=== PATIENT | female | born 1965 | race American Indian/Alaskan Native ===

== ENCOUNTER 2016-06-08 08:05 | Outpatient (CLI) | payer OTHER ==
--- NOTE | 2016-06-08 13:49 | Mammography Report ---
BILATERAL DIGITAL SCREENING MAMMOGRAM with CAD: 06/08/16 08:05:00 CLINICAL: Routine screening. COMPARISON:12/31/14 FINDINGS: The breasts are heterogeneously dense, which may obscure small masses. No mass, architectural distortion or suspicious calcifications. IMPRESSION: No mammographic evidence of malignancy. BI-RADS CATEGORY: 1 - - Negative RECOMMENDATION: Routine mammographic screening in one year. COMMENT: Patient follow-up letters are generated by our [employer] application.
== END 2016-06-08 08:06 | disposition home or self-care (01) ==
LOC: SPVWC 08:05
PROVIDERS: ATTEND Internal Medicine
DX: Z12.31 Encounter for screening mammogram for malignant neoplasm of breast (principal)
CPT/HCPCS: 77067; G0202

== ENCOUNTER 2017-06-21 08:01 | Outpatient (CLI) | payer OTHER ==
--- NOTE | 2017-06-21 11:34 | Mammography Report ---
Screening mammogram: Routine imaging is compared to prior exams dating back to 2015. There is an intermediate density fibroglandular patterns diffusely distributed bilaterally. This pattern is generally unchanged from prior exams. In the superior right breast seen only in the MLO projection however there is a 4.5 mm circumscribed density on the current study not previously visualized. The findings are otherwise remarkable. CAD used. Impression: Right breast asymmetry. Recommendation: Additional compression imaging of the right breast and ultrasound as needed. BI-RADS CATEGORY: 0 = Needs additional imaging evaluation ACR BI-RADS MAMMOGRAPHIC CODES: 0 = Needs additional imaging evaluation; 1 = Negative; 2 = Benign; 3 = Probably benign; 4 = Suspicious; 5 = Malignant; 6 = Known biopsy-proven malignancy COMMENT: 1. Dense breast tissue, i.e., adenosis, fibrocystic changes, etc., may obscure an underlying neoplasm. 2. Approximately 10% of cancers are not detected with mammography. 3. A negative mammography report should not delay biopsy if a clinically suspicious mass is present.
== END 2017-06-21 08:02 | disposition home or self-care (01) ==
LOC: SPVWC 08:01
PROVIDERS: ATTEND Internal Medicine
DX: Z12.31 Encounter for screening mammogram for malignant neoplasm of breast (principal)
CPT/HCPCS: 77067

== ENCOUNTER 2017-07-05 09:41 | Outpatient (CLI) | payer OTHER ==
--- NOTE | 2017-07-05 10:44 | Mammography Report ---
Right mammogram and right breast ultrasound: Call back patient for right asymmetry. Spot MLO compression imaging includes the area previously demonstrating a nodular area of density. The current exam however does not clearly demonstrate the previously suspected nodule. Ultrasound in the superior breast and specifically in the lateral portion fails to identify any echogenic abnormality. The only finding is a benign appearing axillary lymph node. Impression: No suspicious findings. Recommendation: Repeat right mammogram in 6 months to confirm stability. The findings and recommendations have been discussed with the patient. BI-RADS CATEGORY: 3 = Probably benign ACR BI-RADS MAMMOGRAPHIC CODES: 0 = Needs additional imaging evaluation; 1 = Negative; 2 = Benign; 3 = Probably benign; 4 = Suspicious; 5 = Malignant; 6 = Known biopsy-proven malignancy COMMENT: 1. Dense breast tissue, i.e., adenosis, fibrocystic changes, etc., may obscure an underlying neoplasm. 2. Approximately 10% of cancers are not detected with mammography. 3. A negative mammography report should not delay biopsy if a clinically suspicious mass is present. No
== END 2017-07-05 09:42 | disposition home or self-care (01) ==
LOC: SPVWC 09:41
PROVIDERS: ATTEND Internal Medicine
DX: N65.1 Disproportion of reconstructed breast (principal); N64.89 Other specified disorders of breast